=== PATIENT | female | born 1960 | race Caucasian/White ===

== ENCOUNTER 2017-12-24 09:56 | Emergency (ER) | payer OTHER ==
[2017-12-24 10:13] VITALS: TEMP 98.5
--- NOTE | 2017-12-24 10:30 | ED.PDOC ---
History of Present Illness - General Chief Complaint: Upper Extremity Injury Stated Complaint: elbow pain Time Seen by Provider: 12/24/17 10:24 Source: patient Exam Limitations: no limitations - History of Present Illness Initial Comments: PT FELL ON R ELBOW LAST NIGHT. IT IS STILL PAINFUL TODAY. DENIES PAIN IN WRIST OR SHOULDER. Occurred: yesterday Pain - Upper Extremity: severe: Elbow, right Method of Injury: fell Improving Factors: immobilization Worsening Factors: movement Allergies/Adverse Reactions: Allergies Codeine Allergy (Verified 12/24/17 10:15) Levofloxacin [From Levaquin] Allergy (Verified 12/24/17 10:13) Other Review of Systems - Review of Systems Constitutional: States: no symptoms reported EENTM: States: no symptoms reported Respiratory: States: no symptoms reported Cardiology: States: no symptoms reported Gastrointestinal/Abdominal: States: no symptoms reported Genitourinary: States: no symptoms reported Musculoskeletal: States: see HPI, joint pain, joint swelling. Denies: back pain Skin: States: other - ABRASION Neurological: Denies: headache, tingling Endocrine: States: no symptoms reported Hematologic/Lymphatic: States: no symptoms reported All other Systems: Reviewed and Negative Past Medical History (General) - Patient Medical History Hx of COPD: No Hx Cardiac Disorders: Yes Hx Hypertension: Yes Hx Cancer: Yes - skin Surgical History: Hysterectomy - Vaccination History Hx Influenza Vaccination: Yes Hx Pneumococcal Vaccination: Yes - Social History Hx Tobacco Use: Yes Hx Alcohol Use: No Family Medical History - Family History Mother Hx Family Cancer: Yes Physical Exam - Physical Exam General Appearance: Alert, No apparent distress Eyes, Ears, Nose, Throat Exam: PERRL/EOMI, normal ENT inspection Neck: full range of motion, supple Cardiovascular/Respiratory: regular rate, rhythm, normal peripheral pulses Abdominal Exam: non-tender Back Exam: no CVA tenderness, no vertebral tenderness Shoulder Exam: normal inspection, non-tender, no evidence of injury Elbow/Forearm Exam: bone tenderness, limited ROM - ACUTELY UNABLE TO FULLY FLEX OR EXTEND R ELBOW. L ELBOW EXAM NL. , pain, soft tissue tenderness, swelling Wrist Exam: normal inspection, non-tender, no evidence of injury Hand Exam: normal inspection, no evidence of injury Neuro/Tendon: normal sensation, no evidence tendon injury Mental Status: alert, oriented x 3 Skin Exam: other - SMALL SUPERFICIAL ABRASION L ELBOW. Progress - Results/Orders Results/Orders: XRAY NEG. R OLECRANON CONTUSION. JAN ANDERSON. Departure - Departure Clinical Impression: Contusion of elbow, right, Right elbow pain Disposition: Discharge to Home or Self Care Condition: Good Departure Forms: ED Discharge - Pt. Copy, Patient Portal Self Enrollment Instructions: DI for Elbow Pain Diet: resume usual diet Activity: increase activity as tolerated Referrals: Mendel Castillo MD [Primary Care Provider] - 1-2 Weeks Additional Instructions: Rest the area. Apply ice. Take ibuprofen as needed.
--- NOTE | 2017-12-24 10:46 | RAD ---
EXAM DESCRIPTION: Elbow,Right 3 Views CLINICAL HISTORY: 57 years Female, fall COMPARISON: None. FINDINGS: 3 views of the right elbow show no acute fracture or malalignment. No radiopaque foreign body or soft tissue gas. No joint effusion. IMPRESSION: No acute findings. Electronically signed by: John Paul Gauthier MD 12/24/2017 10:45 AM CDT
[2017-12-24] MEDS ORDERED: NEOMYCIN-BACITRACIN-POLYMYXIN 0.9 GM UD TOP ONE (10:59)
[2017-12-24 11:05] VITALS: BP 154/73; O2SAT 99
== END 2017-12-24 11:00 | disposition home or self-care (01) ==
LOC: ER 09:56
DX: S50.01XA Contusion of right elbow, initial encounter (principal); I10 Essential (primary) hypertension; Z85.828 Personal history of other malignant neoplasm of skin; Z87.891 Personal history of nicotine dependence; W19.XXXA Unspecified fall, initial encounter; Y92.9 Unspecified place or not applicable

== ENCOUNTER → 2018-05-21 | Outpatient (CLI) | payer OTHER ==
--- NOTE | 2018-05-21 13:27 | RAD ---
EXAM DESCRIPTION: Chest,2 Views CLINICAL HISTORY: PNEUMONIA COMPARISON: Previous study November 02, 2010 TECHNIQUE: PA/lateral FINDINGS: Reticulonodular interstitial infiltrative changes are seen throughout the lungs suggesting diffuse pulmonary fibrosis. Findings have worsened since the previous study. Acute interstitial infiltrate is possible but thought less likely with this pattern. Correlate with CT findings (including high resolution CT images of the lungs). Heart size is normal with normal pulmonary vascularity. No pleural effusion or pneumothorax. No airspace consolidation. Lateral view shows intact sternum and T-spine. Vascular stent is seen on the lateral view. IMPRESSION: Increased interstitial markings suggesting pulmonary fibrosis. Correlate with CT findings. Electronically signed by: Jose Nixon MD 05/21/2018 1:26 PM CDT
== END ==
LOC: YCFC.O 12:54
PROVIDERS: ATTEND Family Medicine
DX: J18.9 Pneumonia, unspecified organism (principal)

== ENCOUNTER → 2018-10-08 | Outpatient (CLI) | payer OTHER ==
--- NOTE | 2018-10-09 11:48 | MRI ---
EXAM DESCRIPTION: Lumbar Spine w/o Contrast : Magnetic Resonance Imaging. CLINICAL HISTORY: LOW BACK PAIN COMPARISON: None. TECHNIQUE: Multiplanar, multiple standard sequences, non contrast MRI, lumbar spine. FINDINGS: L5-S1: Disc desiccation and moderate disc space loss. Posterior midline 7 mm protrusion and a second left paracentral 5 mm protrusion and 5 mm inferior migration or extrusion abutting the thecal sac displacing the anterior ligament and effacing the left subarticular recess. Mass effect on the thecal sac. AP canal diameter 12 mm. Moderate left foraminal stenosis. Severe right foraminal narrowing. Minimal facet arthrosis. L4-5: Disc desiccation and minimal disc space loss. Posterior broad-based disc bulge abutting the thecal sac. Moderate flavum ligament hypertrophy. Minimal effacement of the bilateral subarticular recesses and mild to moderate canal narrowing. Moderate bilateral foraminal narrowing. Minimal facet arthrosis. L3-4: Disc desiccation with minimal disc space loss. Anterior bulging. 1 to 2 mm grade 1 retrolisthesis. Mild canal narrowing more on the right than the left. Minimal flavum ligament hypertrophy. Minimal facet arthrosis. L2-L3: Disc desiccation and disc space maintained. Anterior bulging and endplate ridging. Posterior broad-based bulge. Flavum ligament hypertrophy. Mild canal narrowing. Bilateral mild foraminal narrowing. L1-2: Minimal disc desiccation. Small concavities in the endplates. No significant posterior bulging. Posterior elements unremarkable. Canal and bilateral foramina are patent. T12-L1: Normal signal in the disc with disc space preserved. No bulging. Posterior elements are unremarkable. Canal and foramina are patent. Conus terminates just below the disc space. Decreased lumbar lordosis. No scoliosis. Paravertebral soft tissues show a 3.8 x 3.3 cm abdominal aortic aneurysm. The aneurysm is approximately 4.4 cm in length, extending from the L2-3 disc space to the L3-4 disc space. Normal marrow signal in the remaining vertebral bodies and the posterior elements. Vertebral bodies are not compressed at any level. IMPRESSION: 1. Herniation of the L5-S1 disc on either side of the midline abutting the thecal sac and partially effacing the left subarticular recess. Possible encroachment on the left S1 nerve, correlate for radiculopathy. Also foraminal stenosis on the left and severe right foraminal narrowing, correlate for bilateral L5 radiculopathy. 2. L4-5 disc bulging into the canal and slightly inferior to the disc space with partial effacement of the bilateral subarticular recesses, possibly abutting the bilateral L5 nerves. 3. Grade 1 retrolisthesis L3-L4. 4. 3.8 x 3.3 cm abdominal aortic aneurysm. [facility] Best Practice recommendations for annual imaging follow-up. Please see below*. *3.8 cm Abdominal Aortic Aneurysm Recommend annual follow-up. Reference: J Vasc Surg 2009 Oct;50(4 Suppl):S2-49. . Electronically signed by: Herve Jarquin MD 10/09/2018 11:47 AM [facility]
== END ==
LOC: MRI 11:05
PROVIDERS: ATTEND Family Medicine
DX: M51.27 Other intervertebral disc displacement, lumbosacral region (principal); M51.86 Other intervertebral disc disorders, lumbar region

== ENCOUNTER → 2018-11-05 | Outpatient (CLI) | payer OTHER ==
--- NOTE | 2018-11-05 16:39 | MRI ---
Study: MRI of the Left Hip. Indication: M25.552 Technique: Multiplanar, multi sequence MRI of the left hip was obtained without intravenous contrast. Comparison: None. Findings: No acute fracture or osteonecrosis of the left hip. Undersurface tearing at the base of the anterior superior left hip labrum noted. Grade 3 chondral thinning throughout the majority of the left hip joint with tiny joint line osteophytes. Tiny joint effusion. Subtle intramuscular edema medial left adductor musculature indicating grade 1 muscle strains. No muscle tear. Tendinosis bilateral gluteus minimus/medius tendon insertions, right greater than left, with bilateral greater trochanter bursal edema. High-grade tendinosis right hamstring tendon origin with mild changes of the left. No acute full-thickness pelvic tendon tear. Mild pubic symphysis osteoarthritis. Lower lumbar disc disease. Impression: Mild left hip osteoarthritis with associated labral tearing anterosuperiorly. No acute fracture or osteonecrosis. Subtle strain of the medial margins of the left adductor musculature. No muscle tear. Additional findings as above. Electronically signed by: Cash Martínez MD 11/05/2018 4:36 PM [facility]
== END ==
LOC: MRI 14:19
PROVIDERS: ATTEND Family Medicine
DX: M16.12 Unilateral primary osteoarthritis, left hip (principal)

== ENCOUNTER 2019-11-23 | Day surgery (SDC) | payer OTHER | END 2019-11-23 08:51 | disposition home or self-care (01) | DX: H25.11 Age-related nuclear cataract, right eye (principal); Z88.5 Allergy status to narcotic agent; Z88.8 Allergy status to other drugs, medicaments and biological substances; Z79.82 Long term (current) use of aspirin; Z79.899 Other long term (current) drug therapy | CPT/HCPCS: 00142; 66984; J2250 ==

== ENCOUNTER 2020-01-18 05:32 | Day surgery (SDC) | payer OTHER ==
[2020-01-18] MEDS ORDERED: MOXIFLOXACIN HCL (OPHTH) 1 DROP DROPS ONE (05:45)
[2020-01-18] MEDS ORDERED: TROP1%/CYCLOPEN 1%/PHENYL 2.5% DROPS ONE ×2 (05:46→09:36)
[2020-01-18] MEDS ORDERED: PROPARACAINE 0.5% OPHTH SOL 15 ML BTTL ONE (05:46)
[2020-01-18] MEDS ORDERED: BRIMONIDINE 0.2% OPHTH DROPS LEFT_EYE ONE (08:23)
[2020-01-18] MEDS ORDERED: DEXAMETHASONE 0.1% OPHTH SOL 1 DROP LEFT_EYE ONE (08:23)
[2020-01-18] MEDS ORDERED: LIDOCAINE 1% 2 ML VIAL INJ ONE (08:23)
[2020-01-18] MEDS ORDERED: PROPARACAINE 0.5% OPHTH SOL 15 ML BTTL LEFT_EYE ONE (08:23)
[2020-01-18] MEDS ORDERED: MIDAZOLAM INJ 2 MG/2 ML VIAL ONE (08:23)
[2020-01-18] MEDS ORDERED: MOXIFLOXACIN HCL (OPHTH) 1 DROP DROPS LEFT_EYE ONE (08:23)
[2020-01-18] MEDS ORDERED: TOBRAMYCIN SULF 0.3 % OPHT SOL 1 DROP LEFT_EYE ONE (08:23)
== END 2020-01-18 09:25 | disposition home or self-care (01) ==
LOC: AMB 05:32
PROVIDERS: ATTEND Ophthalmology
DX: H25.12 Age-related nuclear cataract, left eye (principal); I10 Essential (primary) hypertension; I25.10 Atherosclerotic heart disease of native coronary artery without angina pectoris; F17.210 Nicotine dependence, cigarettes, uncomplicated
CPT/HCPCS: 00142; 66984; J2250